=== PATIENT | female | born 1995 | race African-American/Black ===

== ENCOUNTER 2017-07-03 00:17 | Inpatient (IN) | payer MEDICAID ==
[~2017-07-03] VITALS: Ht 170.2 cm; Wt 121.1 kg
[2017-07-03] MEDS ORDERED: DEXT 5%/LR + PITOCIN 20UNITS/L 1,000 ML IV SCH ×2 (00:29→05:28)
[2017-07-03] MEDS ORDERED: METHYLERGONOVINE MALEATE 0.2 MG/ML IM PRN (00:30)
[2017-07-03] MEDS ORDERED: MISOPROSTOL 100MCG TABLET VG SCH (00:30)
[2017-07-03] MEDS ORDERED: BUTORPHANOL TARTRATE 2 MG/ML VIAL IV PRN (00:30)
[2017-07-03] MEDS ORDERED: PENICILLIN G POTASSIUM 5 MMU in DEXT 5% WATER 100 ML IV SCH (00:30)
[2017-07-03] MEDS ORDERED: LIDOCAINE HCL 1% 20ML VIAL (Pyxis) INJ INFIL SCH (00:30)
[2017-07-03] MEDS ORDERED: NALOXONE HCL 0.4 MG/ML 1ML VIAL IM PRN (00:30)
[2017-07-03] MEDS ORDERED: CARBOPROST TROMETHAMINE 250 MCG/ML AMPUL IM PRN (00:30)
[2017-07-03] MEDS ORDERED: PENICILLIN G POTASSIUM 5 MMU in SODIUM CHLORIDE 0.9% 100 ML IV SCH (00:46)
[2017-07-03 00:57] VITALS: BP 124/80
[2017-07-03] MEDS: LACTATED RINGERS 1,000 ML IV SCH ×3 (01:04→04:19)
[2017-07-03 01:26] LABS: BASOPHILS % 0.3 % (0.0-2.0); EOSINOPHILS % 0.6 % (0.0-5.0); HEMATOCRIT. 35.6 % (36.0-48.0); HEMOGLOBIN. 11.6 g/dL (12.0-16.0); MEAN CORPUSCULAR HEMOGLOBIN 25.1 pg (28.0-32.0); MEAN CORPUSCULAR VOLUME 77.1 fL (81.0-99.0); MEAN PLATELET VOLUME 9.4 fl (7.4-10.4); MONOCYTES % 6.1 % (2.0-8.0); PLATELET 167 x1000/uL (130-400); RED BLOOD CELL COUNT 4.61 mill/uL (4.2-5.4); RED CELL DISTRIBUTION WIDTH 13.5 % (11.6-14.6)
[2017-07-03 01:32] LABS: PARTIAL THROMBOPLASTIN TIME 30.3 sec (23.4-31.0)
[2017-07-03] MEDS ORDERED: BUPIVACAINE HCL/PF 0.25% (2.5MG/ML) 10ML ONE (03:02)
[2017-07-03] MEDS ORDERED: BUPIVACAINE HCL/NS/PF EPIDURAL 100 ML EP ONE (03:02)
[2017-07-03] MEDS ORDERED: LIDOCAINE HCL 2%/EPINEPHRINE/PF 10 ML VIAL ONE (03:02)
[2017-07-03] MEDS ORDERED: PENICILLIN G POTASSIUM 2.5 MMU in DEXTROSE 5% WATER 50 ML IV SCH (05:00)
[2017-07-03] MEDS ORDERED: IBUPROFEN 400MG TABLET PO PRN (05:30)
[2017-07-03] MEDS ORDERED: IBUPROFEN 800MG TABLET PO PRN (05:30)
[2017-07-03] MEDS ORDERED: ACETAMINOPHEN WITH CODEINE 300/30MG TABLET PO PRN (05:30)
[2017-07-03] MEDS ORDERED: BISACODYL 10MG SUPP PR PRN (05:30)
[2017-07-03] MEDS ORDERED: GLYCERIN/WITCH HAZEL LEAF MEDICATED PAD TOP PRN (05:30)
[2017-07-03 05:59] LABS: CLARITY URINE CLEAR (CLEAR); COLOR URINE YELLOW (YELLOW); KETONES URINE 1+ (NEGATIVE); LEUKOCYTE ESTERASE URINE NEGATIVE (NEGATIVE); NITRITE URINE NEGATIVE (NEGATIVE); OCCULT BLOOD URINE TRACE (NEGATIVE); PH URINE 5.5 (4.5-8.0); PROTEIN URINE NEGATIVE (NEGATIVE); SPECIFIC GRAVITY URINE 1.011 (1.005-1.030); UROBILINOGEN URINE 0.2 E.U./dL (0.2-1.0)
[2017-07-03 06:08] LABS: *BARBITURATES SCREEN URINE NEGATIVE (NEGATIVE); *BENZODIAZEPINES SCREEN URINE NEGATIVE (NEGATIVE); *COCAINE SCREEN URINE NEGATIVE (NEGATIVE); CANNABINOID URINE SCREEN NEGATIVE (NEGATIVE); METHADONE URINE SCREEN NEGATIVE (NEGATIVE); OPIATES URINE SCREEN NEGATIVE (NEGATIVE); PHENCYCLIDINE URINE SCREEN NEGATIVE (NEGATIVE)
[2017-07-03 06:10] LABS: *AMPHETAMINES SCREEN URINE PRESUMTIVE POSITIVE (NEGATIVE)
[2017-07-03 08:08] LABS: HEPATITIS B SURFACE ANTIGEN NEGATIVE
[2017-07-03] MEDS: SIMETHICONE 80MG TABLET CHEW PO SCH ×3 (09:00→14:05)
[2017-07-03] MEDS: MAGNESIUM/ALUMINUM HYDROXIDE/SIMETHICONE 30ML UDC PO SCH ×3 (09:00→14:05)
[2017-07-03] MEDS ORDERED: PRENATAL VIT/FE FUMARATE/FA TABLET PO SCH (09:00)
[2017-07-03] MEDS ORDERED: DOCUSATE SODIUM 100MG CAPSULE PO SCH (21:00)
[2017-07-04] MEDS ORDERED: FERROUS SULFATE 325MG TABLET PO SCH (12:10)
[2017-07-10 13:10] LABS: AMPHETAMINE CONF URINE Positive (.)
== END 2017-07-03 16:45 | disposition left against medical advice (07) | DRG 560 ==
LOC: OBSVTOIN 00:17 → L&D 00:17 → 7EST PP/OB 08:57
PROVIDERS: ADMIT Obstetrics & Gynecology; ATTEND Obstetrics & Gynecology
PROC: 10E0XZZ Delivery of Products of Conception, External Approach (ICD-10-PCS; principal; 2017-07-03)
PROC: 0KQM0ZZ Repair Perineum Muscle, Open Approach (ICD-10-PCS; 2017-07-03)
PROC: 3E0R3BZ Introduction of Anesthetic Agent into Spinal Canal, Percutaneous Approach (ICD-10-PCS; 2017-07-03)
PROC: 00HU33Z Insertion of Infusion Device into Spinal Canal, Percutaneous Approach (ICD-10-PCS; 2017-07-03)
DX: O77.0 Labor and delivery complicated by meconium in amniotic fluid (principal); O70.1 Second degree perineal laceration during delivery; Z53.21 Procedure and treatment not carried out due to patient leaving prior to being seen by health care provider; Z37.0 Single live birth; Z3A.39 39 weeks gestation of pregnancy
CPT/HCPCS: 36415; 80305; 80307; 81001; 86592; 86703; 86762; 86850; 86900; 87340; G0378; J0595; J2310; J2540; J2590; J3490; J7050; J7060; J7120; A4315

== ENCOUNTER 2024-10-23 22:28 | Emergency (ER) | payer MEDICAID ==
[~2024-10-23] VITALS: Ht 170.2 cm; Wt 119.0 kg
[2024-10-23 22:34] VITALS: O2SAT 100
[2024-10-23 23:44] LABS: BASOPHILS % 0.1 % (0.0-2.0); DIFFERENTIAL COMMENT 0; HEMATOCRIT. 43.8 % (36.0-48.0); HEMOGLOBIN. 14.1 g/dL (12.0-16.0); LYMPHOCYTES % 33.7 % (20.0-50.0); MEAN CORPUSCULAR HEMOGLOBIN 25.2 pg (28.0-32.0); MEAN CORPUSCULAR HGB CONC 32.2 g/dL (31.0-37.0); MEAN CORPUSCULAR VOLUME 78.2 fL (81.0-99.0); MEAN PLATELET VOLUME 8.9 fl (7.4-10.4); MONOCYTES % 5.4 % (2.0-8.0); NEUTROPHILS % 59.8 % (40.0-76.0); PLATELET 249 x1000/uL (130-400); RED BLOOD CELL COUNT 5.61 mill/uL (4.2-5.4); RED CELL DISTRIBUTION WIDTH 15.8 % (11.6-14.6); WHITE BLOOD COUNT 9.5 x1000/uL (4.5-11.0)
[2024-10-23 23:58] LABS: CHLORIDE 105 mEq/L (98-107); SODIUM 136 mEq/L (136-145)
[2024-10-24] LABS: CALCIUM 9.4 mg/dL (8.7-10.4); CARBON DIOXIDE 25 mEq/L (21-32)
[2024-10-24 00:05] LABS: GLUCOSE 129 mg/dL (70-105); UREA NITROGEN BLOOD 12 mg/dL (9-23)
[2024-10-24 02:03] LABS: CHLORIDE 104 mEq/L (98-107); SODIUM 139 mEq/L (136-145)
[2024-10-24 02:04] LABS: CALCIUM 9.4 mg/dL (8.7-10.4); CARBON DIOXIDE 21 mEq/L (21-32)
[2024-10-24 02:09] LABS: GLUCOSE 123 mg/dL (70-105); UREA NITROGEN BLOOD 13 mg/dL (9-23)
[2024-10-24 02:11] LABS: ALANINE AMINOTRANSFERASE 12 IU/L (10-49); ALBUMIN 5.1 g/dL (3.2-4.8); ASPARTATE AMINOTRANSFERASE 19 IU/L (<34); BILIRUBIN TOTAL 0.3 mg/dL (0.1-1.0); PROTEIN TOTAL 8.6 g/dL (6.0-8.3)
[2024-10-24 02:29] LABS: CLARITY URINE CLEAR (CLEAR); COLOR URINE YELLOW (YELLOW); GLUCOSE URINE NEGATIVE (NEGATIVE); KETONES URINE NEGATIVE (NEGATIVE); LEUKOCYTE ESTERASE URINE TRACE (NEGATIVE); NITRITE URINE NEGATIVE (NEGATIVE); OCCULT BLOOD URINE NEGATIVE (NEGATIVE); PROTEIN URINE NEGATIVE (NEGATIVE); SPECIFIC GRAVITY URINE 1.025 (1.005-1.030); UROBILINOGEN URINE 0.2 E.U./dL (0.2-1.0)
[2024-10-24 02:44] LABS: HCG SCREEN NEGATIVE
[2024-10-24 02:52] LABS: BACTERIA URINE TRACE; RBC URINE 0-2 /hpf (0-2); SQUAMOUS EPITHELIAL CELL URINE 1+ /lpf (RARE/1+)
[2024-10-24] MEDS ORDERED: DOXY100C5 MT (04:29)
[2024-10-24] MEDS ORDERED: TRUV MT (04:30)
[2024-10-24] MEDS ORDERED: RALT400T MT (04:30)
[2024-10-24] MEDS: CEFTRIAXONE SODIUM 500MG VIAL IM ONE (04:59)
[2024-10-24] MEDS: LIDOCAINE HCL/PF 1% 10 MG/ML 5ML VIAL INFIL ONE (05:00)
[2024-10-24 05:24] VITALS: BP 104/68; PULSE 75; RESP 18; TEMP 37.1; O2SAT 97
[2024-10-26 07:10] LABS: CHLAMYDIA TRACHOMATIS NAA Negative (Negative); NEISSERIA GONORRHOEAE NAA Negative (Negative)
== END 2024-10-24 05:25 | disposition home or self-care (01) ==
LOC: ER 22:28
DX: Z20.2 Contact with and (suspected) exposure to infections with a predominantly sexual mode of transmission (principal); Z79.899 Other long term (current) drug therapy
CPT/HCPCS: 80053; 80048; 81025; 84702; 85025; 36415; 99283; 87491; 87591; 81003; 84703; 86592; 86593; 87086; 96372; J0696; J2003; Z7610

== ENCOUNTER 2025-02-27 03:10 | Emergency (ER) | payer MEDICAID ==
[~2025-02-27] VITALS: Ht 154.9 cm; Wt 99.0 kg
[~2025-02-27 03:10] MED LIST: DOXY100C5 MT; RALT400T MT; TRUV MT
[2025-02-27 03:13] VITALS: O2SAT 98
[2025-02-27] MEDS: DEXAMETHASONE 10 MG/ML VIAL IM ONE (04:27)
[2025-02-27] MEDS: KETOROLAC 15MG/ML VIAL IM ONE (04:29)
[2025-02-27] MEDS: ACETAMINOPHEN 650MG/20.3ML UDC PO ONE (04:34)
[2025-02-27] MEDS: SODIUM CHLORIDE 0.9% 1,000 ML IV ONE (04:42)
[2025-02-27] MEDS ORDERED: TOPUD MT (05:22)
[2025-02-27] MEDS ORDERED: AMOX500T2 MT (05:22)
[2025-02-27 06:10] VITALS: BP 116/59; PULSE 97; RESP 14; TEMP 37.4; O2SAT 98
== END 2025-02-27 06:20 | disposition home or self-care (01) ==
LOC: ER 03:44
DX: J02.0 Streptococcal pharyngitis (principal); Z79.52 Long term (current) use of systemic steroids; Z79.624 Long term (current) use of inhibitors of nucleotide synthesis
CPT/HCPCS: 81025; 87430; 96360; 96372; 99284; J1100; J1885; J7030; Z7610 ×2

== ENCOUNTER 2025-05-14 14:29 | Emergency (ER) | payer MEDICAID ==
[~2025-05-14] VITALS: Ht 172.7 cm; Wt 109.0 kg
[~2025-05-14 14:29] MED LIST changes: +AMOX500T2 MT; +TOPUD MT
[2025-05-14 14:31] VITALS: O2SAT 98
[2025-05-14 14:36] VITALS: TEMP 37; O2SAT 97
[2025-05-14] MEDS ORDERED: DEXAMETHASONE 1 MG/ML ORAL SYR PO ONE (17:45)
[2025-05-14] MEDS ORDERED: P20 MT (18:04)
[2025-05-14] MEDS ORDERED: IBUP-1455 MT (18:04)
[2025-05-14] MEDS ORDERED: AMOX1TAB16 MT (18:04)
[2025-05-14 18:09] VITALS: BP 128/81; PULSE 110; RESP 16
[2025-05-14] MEDS: KETOROLAC 30MG/ML VIAL IM ONE (18:09)
[2025-05-14] MEDS: DEXAMETHASONE 4MG TABLET PO NR (18:09)
[2025-05-14] MEDS: VISCOUS LIDOCAINE 2% 15 ML UDC MM STA (18:09)
== END 2025-05-14 18:35 | disposition home or self-care (01) ==
LOC: ER 14:29
DX: J02.0 Streptococcal pharyngitis (principal)
CPT/HCPCS: 81025; 96372; 99283; J8540; J1885; Z7610